=== PATIENT | male | born 1990 | race Caucasian/White ===

== ENCOUNTER 2022-10-09 11:45 | Emergency (ER) | payer OTHER, SELFPAY ==
[2022-10-09 11:54] VITALS: BP 156/82; PULSE 97; RESP 16; TEMP 35.8; O2SAT 99
--- NOTE | 2022-10-09 12:14 | ED.URI ---
HPI - URI/Sore Throat General Chief Complaint: Upper Respiratory Infection Stated Complaint: throat and eyes History of Present Illness HPI Narrative: Pt is a 32 y/o male, presents to with 5 day hx of sore throat, followed by right eye injection two days ago. He denies associated fevers or rhinorrhea. He is congested and has noticed posterior rhinorrhea. He denies crusting or vision changes to the right eye and he does not wear contact lenses. he has not taken any OTC medications for symptom relief. He denies any other complaints. Related Data Allergies Allergy/AdvReac Type Severity Reaction Status Date / Time No Known Allergies Allergy Unverified 05/07/12 19:52 Review of Systems Constitutional: Constitutional: Reports as per HPI ENT: Reports as per HPI Exam Const: General: healthy appearing, no acute distress and alert Nutritional Appearance: well nourished and obese Orientation/consciousness: patient oriented x3 Limitations: no limitations HENMT: Head: normal to inspection Ears: external ears normal and TM's normal bilaterally (tympanosclerosis noted to TM's bilaterally. No erythema. Scant serous fluid) Face/Nose/Sinus: Normal external nose present Face and sinus: normal facial exam and sinuses nontender Mouth: Yes Normal oral and palatal mucosa present, Yes lip normal and Yes moist mucous membranes Teeth and gingiva: dentition normal Throat: uvula midline Other: pt has erythema and cobble stone appearance of the posterior pharynx. tonsils are 1+ bilaterally without erythema or exudate. no trismus. Nasal turbinates are swollen and erythematous Eyes: Conjunctivae: conjunctival abnormality right (no drainage, no chemosis ) conjunctival injection EOM: EOMs intact bilaterally Direct Ophthalmoscopy: no photophobia Chest: Chest palpation & inspection: normal inspection of the chest Resp: Effort & Inspection: normal respiratory effort Auscultation: clear to auscultation bilaterally Cardio: Rate: regular rate Rhythm: regular rhythm Skin: General skin exam: normal color Rashes: no rashes Neuro: General: patient oriented x3, moves all extremities, no meningeal signs and no focal motor deficits Cranial nerves: Yes Nystagmus not present Speech: normal speech Gait exam (Neuro): Normal gait present Extrem: General: normal to inspection, no clubbing, cyanosis or edema and no pedal edema Course Course Emergency Course: oral steroids, antihistamine eye drops, FU if fevers arise or condition is not improving in 3 days. Pt is agreeable with plan Level of Care: Express Care Visit ([id number]) Vital Signs Vital signs: Vital Signs Temperature 35.8 C L 10/09/22 11:54 Pulse Rate 97 10/09/22 11:54 Respiratory Rate 16 10/09/22 11:54 Blood Pressure 156/82 H 10/09/22 11:54 Pulse Oximetry 99 10/09/22 11:54 Oxygen Delivery Room Air 10/09/22 11:54 Temperature 35.8 C L 10/09/22 11:54 Pulse Rate 97 10/09/22 11:54 Respiratory Rate 16 10/09/22 11:54 Blood Pressure 156/82 H 10/09/22 11:54 Pulse Oximetry 99 10/09/22 11:54 Oxygen Delivery Room Air 10/09/22 11:54 MDM - URI/Sore Throat MDM Narrative Medical decision making narrative: right eye conjunctiva is non tender, without vision changes or drainage, suspect viral or allergic in nature. Will treat with Patanol eye drops, short steroid course, OTC antihistamines FU in 3 days if symptoms are not improving. Differential Diagnosis Differential diagnosis: Likely upper respiratory infection, sinusitis, viral infection, pharyngitis and other (post nasal drip) Discharge Plan Discharge Clinical Impression: Upper respiratory infection Qualifiers: URI type: unspecified viral URI Qualified Code(s): J06.9 - Acute upper respiratory infection, unspecified Conjunctivitis Qualifiers: Conjunctivitis type: acute Acute conjunctivitis type: viral Laterality: right Qualified Code(s): B30.9 - Viral conjunctivitis, unspecified Patient Disposition
== END 2022-10-09 12:28 | disposition home or self-care (01) ==
PROVIDERS: Emergency Provider Nurse Practitioner Family
DX: J06.9 Acute upper respiratory infection, unspecified (principal); B30.9 Viral conjunctivitis, unspecified
CPT/HCPCS: 99213; G0463